=== PATIENT | female | born 1970 | race American Indian/Alaskan Native ===

== ENCOUNTER 2022-01-27 14:48 | Emergency (ER) | payer OTHER ==
[2022-01-27 21:28] LABS: Hemoglobin 12.1 gm/dl (10.1-14.3); Mean Corpuscular HGB Conc 33 % (30-34); Mean Corpuscular Volume 81 fl (79-97); Platelet Count 297 K/mm3 (140-440); Red Blood Count 4.57 M/mm3 (3.65-5.03); Red Cell Distribution Width 17.7 % (13.2-15.2)
[2022-01-27] MEDS ORDERED: LORazepam 2 MG/ML VIAL IM PRN (21:29)
[2022-01-27] MEDS ORDERED: HALOPERIDOL LACTATE 5 MG/1 ML INJ IM PRN (21:29)
--- NOTE | 2022-01-27 21:30 | Emergency Department Report ---
ED General Adult HPI - General Chief complaint: Psych Stated complaint: I am homicidal. I am suicidal. Time Seen by Provider: 01/27/22 20:46 Source: patient, EMS (The patient was evaluated in the emergency department for symptoms described in the history of present illness. He/she was evaluated in the context of the global COVID-19 pandemic, which necessitated consideration that the patient might be at risk for infection with the virus that causes COVID-19. ), RN notes reviewed Mode of arrival: Stretcher Limitations: Other (Patient is acutely psychotic) - History of Present Illness Initial comments: The patient was evaluated in the emergency department for symptoms described in the history of present illness. He/she was evaluated in the context of the global COVID-19 pandemic, which necessitated consideration that the patient might be at risk for infection with the virus that causes COVID-19. Institutional protocols and algorithms that pertain to the evaluation of patients at risk for COVID-19 are in a state of rapid change based on in formation released by regulatory bodies including the CDC and federal and state organizations. These policies and algorithms were followed during the patient's care in the emergency department. Please note that these policies, procedures and recommendations changed on a rapid basis. This is a 51-year-old female who presents to the department today and complaints to myself to being homicidal and suicidal. She recently relocated to [place] from [place]. She complains of homicidality and suicidality. She denies physical pain. She denies chest pain. She makes no complaint of wanting to pass out to myself. She has not been on her medications. She denies cough and COVID symptoms. She denies urinary symptoms. She does not describe exacerbating or relieving factors. -: Gradual Consistency: constant Associated Symptoms: denies other symptoms - Related Data Allergies Allergy/AdvReac Type Severity Reaction Status Date / Time No Known Allergies Allergy Verified 01/27/22 15:00 ED Review of Systems ROS: Stated complaint: FELT LIKE PASSING OUT Other details as noted in HPI Comment: All other systems reviewed and negative Cardiovascular: other (Lightheadedness. No head trauma). denies: syncope (Denies losing consciousness) Genitourinary: denies: dysuria Psychiatric: depression, homicidal thoughts, suicidal thoughts, other (Agitation and anxiety) ED Past Medical Hx - Past Medical History Previous Medical History?: Yes Hx Psychiatric Treatment: Yes Hx Asthma: Yes ED Physical Exam - General Limitations: Other (Patient is psychotic) General appearance: alert, anxious - Head Head exam: Present: atraumatic, normocephalic - Eye Eye exam: Present: normal appearance, EOMI. Absent: nystagmus - ENT ENT exam: Present: normal exam, normal orophraynx, mucous membranes moist, normal external ear exam - Neck Neck exam: Present: normal inspection, full ROM. Absent: tenderness, meningismus - Respiratory Respiratory exam: Present: normal lung sounds bilaterally. Absent: respiratory distress, wheezes, rales, rhonchi, stridor - Cardiovascular Cardiovascular Exam: Present: regular rate, normal rhythm, normal heart sounds. Absent: bradycardia, tachycardia, irregular rhythm, systolic murmur, diastolic murmur, rubs, gallop - GI/Abdominal GI/Abdominal exam: Present: soft. Absent: distended, tenderness, guarding, rebound, rigid, pulsatile mass - Extremities Exam Extremities exam: Present: normal inspection, full ROM, normal capillary refill, other (2+ pulses noted in the bilateral upper and lower extremities. There is no palpable cord. negative Homans sign. Muscular compartments are soft. The pelvis is stable.). Absent: pedal edema, calf tenderness - Back Exam Back exam: Present: normal inspection. Absent: tenderness, CVA tenderness (R), CVA tenderness (L), paraspinal tenderness, vertebral tenderness - Neurological Exam Neurological exam: Present: alert, normal gait, other (There is no facial droop. The tongue is midline. EOMI. 5 out of 5 strength in 4 extremities). Absent: motor sensory deficit - Psychiatric Psychiatric exam: Present: agitated, anxious, homicidal ideation, suicidal ideation - Skin Skin exam: Present: warm, dry, intact, normal color. Absent: rash ED Course Vital Signs 01/27/22 15:00 Temperature 98.6 F Pulse Rate 88 Respiratory 18 Rate Blood Pressure 124/78 [Left] O2 Sat by Pulse 99 Oximetry - Reevaluation(s) Reevaluation #1: 01/27/22 22:22 Differential diagnosis, include but not limited to: Dehydration, orthostasis, electrolyte derangement, psychosis, medical clearance for psychiatric placement Assessment and plan: 51-year-old female, with a primary complaint of homicidality and suicidality. She is not currently tachycardic, tachypneic or hypoxic. Her physical exam is benign and noncontributory. She ambulates with a steady gait. Her laboratory studies are essentially unremarkable. Urinalysis is contaminated. She denies irritative and obstructive urinary symptoms. Have ordered a psychiatric consultation, and placed this patient on a 1013. COVID swab is ordered. The emergency room will follow along as the patient provides a COVID swab. Patient currently resting comfortably on her left side, and in no acute distress. At this point in time, this patient does not appear to have an immediate medical contraindication to psychiatric admission, evaluation, consultation and placement ED Medical Decision Making - Lab Data Result diagrams: 01/27/22 21:14 01/27/22 21:14 Vital Signs 01/27/22 15:00 Temperature 98.6 F Pulse Rate 88 Respiratory 18 Rate Blood Pressure 124/78 [Left] O2 Sat by Pulse 99 Oximetry Lab Results 01/27/22 01/27/22 01/27/22 Range/Units 21:00 21:14 21:14 WBC 7.2 (4.5-11.0) K/mm3 RBC 4.57 (3.65-5.03) M/mm3 Hgb 12.1 (10.1-14.3) gm/dl Hct 37.0 (30.3-42.9) % MCV 81 (79-97) fl MCH 27 L (28-32) pg MCHC 33 (30-34) % RDW 17.7 H (13.2-15.2) % Plt Count 297 (140-440) K/mm3 Sodium (137-145) mmol/L Potassium (3.6-5.0) mmol/L Chloride (98-107) mmol/L Carbon Dioxide (22-30) mmol/L Anion Gap mmol/L BUN (7-17) mg/dL Creatinine (0.6-1.2) mg/dL Estimated GFR ml/min BUN/Creatinine Ratio % Glucose (65-100) mg/dL Calcium (8.4-10.2) mg/dL Total Bilirubin (0.1-1.2) mg/dL AST (5-40) units/L ALT (7-56) units/L Alkaline Phosphatase (35-129) units/L Total Creatine Kinase 347 H (30-135) units/L Troponin T (0.00-0.029) ng/mL Total Protein (6.3-8.2) g/dL Albumin (3.9-5) g/dL Albumin/Globulin Ratio % Urine Color (Yellow) Urine Turbidity (Clear) Urine pH (5.0-7.0) Ur Specific [place] (1.003-1.030) Urine Protein (Negative) mg/dL Urine Glucose (UA) (Negative) mg/dL Urine Ketones (Negative) mg/dL Urine Blood (Negative) Urine Nitrite (Negative) Urine Bilirubin (Negative) Urine Urobilinogen (<2.0) mg/dL Ur Leukocyte Esterase (Negative) Urine WBC (Auto) (0.0-6.0) /HPF Urine RBC (Auto) (0.0-6.0) /HPF U Epithel Cells (Auto) (0-13.0) /HPF Urine Mucus /HPF Salicylates < 0.3 L (2.8-20.0) mg/dL Urine Opiates Screen Urine Methadone Screen Acetaminophen (10.0-30.0) ug/mL Ur Barbiturates Screen Phenytoin 0.8 L (10.0-20.0) ug/mL Ur Phencyclidine Scrn U Benzodiazepines Scrn [place] 0.1 (0.0-1.2) mmol/L 01/27/22 01/27/22 01/27/22 Range/Units 21:14 21:14 21:14 WBC (4.5-11.0) K/mm3 RBC (3.65-5.03) M/mm3 Hgb (10.1-14.3) gm/dl Hct (30.3-42.9) % MCV (79-97) fl MCH (28-32) pg MCHC (30-34) % RDW (13.2-15.2) % Plt Count (140-440) K/mm3 Sodium 138 (137-145) mmol/L Potassium 3.6 (3.6-5.0) mmol/L Chloride 102.4 (98-107) mmol/L Carbon Dioxide 22 (22-30) mmol/L Anion Gap 17 mmol/L BUN 9 (7-17) mg/dL Creatinine 0.6 (0.6-1.2) mg/dL Estimated GFR > 60 ml/min BUN/Creatinine Ratio 15 % Glucose 99 (65-100) mg/dL Calcium 9.3 (8.4-10.2) mg/dL Total Bilirubin 0.90 (0.1-1.2) mg/dL AST 28 (5-40) units/L ALT 13 (7-56) units/L Alkaline Phosphatase 70 (35-129) units/L Total Creatine Kinase (30-135) units/L Troponin T < 0.010 (0.00-0.029) ng/mL Total Protein 7.0 (6.3-8.2) g/dL Albumin 4.4 (3.9-5) g/dL Albumin/Globulin Ratio 1.7 % Urine Color (Yellow) Urine Turbidity (Clear) Urine pH (5.0-7.0) Ur Specific [place] (1.003-1.030) Urine Protein (Negative) mg/dL Urine Glucose (UA) (Negative) mg/dL Urine Ketones (Negative) mg/dL Urine Blood (Negative) Urine Nitrite (Negative) Urine Bilirubin (Negative) Urine Urobilinogen (<2.0) mg/dL Ur Leukocyte Esterase (Negative) Urine WBC (Auto) (0.0-6.0) /HPF Urine RBC (Auto) (0.0-6.0) /HPF U Epithel Cells (Auto) (0-13.0) /HPF Urine Mucus /HPF Salicylates (2.8-20.0) mg/dL Urine Opiates Screen Urine Methadone Screen Acetaminophen 5.0 L (10.0-30.0) ug/mL Ur Barbiturates Screen Phenytoin (10.0-20.0) ug/mL Ur Phencyclidine Scrn U Benzodiazepines Scrn [place] (0.0-1.2) mmol/L 01/27/22 01/27/22 Range/Units Unknown Unknown WBC (4.5-11.0) K/mm3 RBC (3.65-5.03) M/mm3 Hgb (10.1-14.3) gm/dl Hct (30.3-42.9) % MCV (79-97) fl MCH (28-32) pg MCHC (30-34) % RDW (13.2-15.2) % Plt Count (140-440) K/mm3 Sodium (137-145) mmol/L Potassium (3.6-5.0) mmol/L Chloride (98-107) mmol/L Carbon Dioxide (22-30) mmol/L Anion Gap mmol/L BUN (7-17) mg/dL Creatinine (0.6-1.2) mg/dL Estimated GFR ml/min BUN/Creatinine Ratio % Glucose (65-100) mg/dL Calcium (8.4-10.2) mg/dL Total Bilirubin (0.1-1.2) mg/dL AST (5-40) units/L ALT (7-56) units/L Alkaline Phosphatase (35-129) units/L Total Creatine Kinase (30-135) units/L Troponin T (0.00-0.029) ng/mL Total Protein (6.3-8.2) g/dL Albumin (3.9-5) g/dL Albumin/Globulin Ratio % Urine Color [place] (Yellow) Urine Turbidity Slightly-cloudy (Clear) Urine pH 5.0 (5.0-7.0) Ur Specific [place] 1.025 (1.003-1.030) Urine Protein 30 mg/dl (Negative) mg/dL Urine Glucose (UA) Neg (Negative) mg/dL Urine Ketones 20 (Negative) mg/dL Urine Blood Neg (Negative) Urine Nitrite Neg (Negative) Urine Bilirubin Neg (Negative) Urine Urobilinogen 4.0 (<2.0) mg/dL Ur Leukocyte Esterase Neg (Negative) Urine WBC (Auto) 26.0 H (0.0-6.0) /HPF Urine RBC (Auto) 4.0 (0.0-6.0) /HPF U Epithel Cells (Auto) 26.0 H (0-13.0) /HPF Urine Mucus 3+ /HPF Salicylates (2.8-20.0) mg/dL Urine Opiates Screen Negative Urine Methadone Screen Negative Acetaminophen (10.0-30.0) ug/mL Ur Barbiturates Screen Negative Phenytoin (10.0-20.0) ug/mL Ur Phencyclidine Scrn Negative U Benzodiazepines Scrn Negative [place] (0.0-1.2) mmol/L - EKG Data -: EKG Interpreted by [place] EKG shows normal: sinus rhythm Rate: normal - EKG Data When compared to previous EKG there are: previous EKG unavailable 01/27/22 22:21 The EKG is interpreted at 21: 38 This is a sinus rhythm, 70 bpm. Borderline leftward axis deviation. Borderline left anterior fascicular block. QTc 504 ms. Motion artifact. Abnormal EKG. Not a STEMI. Borderline atrial enlargement. - Radiology Data Radiology results: pending, report reviewed, image reviewed CHEST 2 VIEWS INDICATION / CLINICAL INFORMATION: Medical Clearance Psych. COMPARISON: None available. FINDINGS: SUPPORT DEVICES: None. HEART / MEDIASTINUM: No significant abnormality. LUNGS / PLEURA: The lungs are mildly hyperinflated but otherwise clear. No pneumothorax. ADDITIONAL FINDINGS: No significant additional findings. IMPRESSION: 1. No acute findings. Signer Name: Madyson Dodson MD Signed: 01/27/2022 8:47 PM Workstation Name: [id number] Critical care attestation.: If time is entered above; I have spent that time in minutes in the direct care of this critically ill patient, excluding procedure time. ED Disposition Clinical Impression: Psychosis, Medical clearance for psychiatric admission Disposition: [address] [place] [address] Is pt being admited?: No Does the pt Need Aspirin: No Condition: Good
[2022-01-27 21:47] LABS: Bilirubin,Urine NEG (Negative); Blood,Urine NEG (Negative); Color,Urine Amber (Yellow)
[2022-01-27 21:50] LABS: Mucus,Urine 3+ /HPF
--- NOTE | 2022-01-27 21:51 | XRay Report ---
CHEST 2 VIEWS INDICATION / CLINICAL INFORMATION: Medical Clearance Psych. COMPARISON: None available. FINDINGS: SUPPORT DEVICES: None. HEART / MEDIASTINUM: No significant abnormality. LUNGS / PLEURA: The lungs are mildly hyperinflated but otherwise clear. No pneumothorax. ADDITIONAL FINDINGS: No significant additional findings. IMPRESSION: 1. No acute findings. Signer Name: Madyson Dodson MD Signed: 01/27/2022 9:47 PM Workstation Name: [id number]
[2022-01-27 21:56] LABS: Alanine Aminotransferase 13 units/L (7-56); Albumin 4.4 g/dL (3.9-5); Blood Urea Nitrogen 9 mg/dL (7-17); Calcium 9.3 mg/dL (8.4-10.2); Hemolysis Index 8
[2022-01-27 21:58] LABS: BUN/Creatinine Ratio 15
[2022-01-27 22:01] LABS: Benzodiazepines Screen,Urine Negative; Methadone Screen,Urine Negative; Opiate Screen,Urine Negative
[2022-01-27 22:32] LABS: Basophils % (Manual) 0 % (0.0-1.8); Total Cells Counted 100
[2022-01-27 22:38] LABS: Anisocytosis 1+; Platelet Estimate Consistent w Auto
[2022-01-27 22:48] LABS: Amphetamine Screen,Urine Positive; Cannabinoid Screen,Urine Positive; Cocaine Screen,Urine Positive
--- NOTE | 2022-01-28 09:12 | Consultation ---
History of Present Illness - Reason for Consult Consult date: 01/28/22 Reason for consult: SI - History of Present Psychiatric Illness HPI: This is a 51-year-old female who presents to the department today and complaints to myself to being homicidal and suicidal. She recently relocated to [place] from [place]. She complains of homicidality and suicidality. She denies physical pain. She denies chest pain. She makes no complaint of wanting to pass out to myself. She has not been on her medications. She denies cough and COVID symptoms. She denies urinary symptoms. She does not describe exacerbating or relieving factors. The patient was seen today. She is irritable, and appears anxious. She is rocking back and forth. The patient says she is hearing things. She would not tell me what she was hearing, she says "stuff. I'm having psychosis." She also states she is suicidal and homicidal. The patient says she's been off her meds for about two months. She says depakote and hydroxizine is what she takes. She says she has a history of schizophrenia and bipolar. The patient endorses cocaine, alcohol and THC. She is also positive for methamphetamines. She says she drinks a 6 pack of beer daily PAST PSYCHIATRIC HISTORY: Diagnoses: Bipolar, schizophrenia Suicide attempts or Self-harm behavior: Denies Prior psychiatric hospitalizations: Yes Substance Abuse history: meth, crack, THC, alcohol Previous psychiatric medications tried: depakote, hydroxizine Outpatient treatment: Unknown PAST MEDICAL HISTORY: None reported Family Psychiatric History: None reported or documented SOCIAL HISTORY Marital Status: Single Living Arrangements: "visiting" Employment Status: Disabled Access to guns/weapons: Denies Education: 12th grade History of Abuse:Denies Legal History: Denies REVIEW OF SYSTEMS Constitutional: Negative for weight loss ENT: Negative for stridor Respiratory: Negative for cough or hemoptysis All other systems reviewed and are negative MENTAL STATUS EXAMINATION General Appearance and Behavior: Age appropriate, wearing appropriate clothes, cooperative, polite with questioning, fair eye contact, rocking back and forth Cooperation: cooperative Psychomotor Behavior: Psychomotor normal Mood: depressed Affect and affective range: congruent with states mood Thought Process: Goal oriented Thought Content: SI//HI, hallucinations Speech: Normal volume, Regular rate and rhythm Suicidal Ideation: Yes Homicidal Ideation: Yes Hallucination: Auditory Delusions: None elicted Impulse Control: Limited Insight and Judgment: Limited Memory: Intact Attention:attentive Orientation: Alert and oriented Diagnoses: Schizophrenia Polysubstance Use Treatment Plan 1013 Olanzapine 5mg po daily Depakote DR 125mg po BID Vistaril 25mg po q6h prn anxiety Agree with [facility] Medical: Per primary Sitter: Defer to primary Disposition: Recommend acute psychiatric inpatient treatment Will follow. Thanks Case staffed with Dr. Nelson Medications and Allergies Allergies Allergy/AdvReac Type Severity Reaction Status Date / Time No Known Allergies Allergy Verified 01/27/22 15:00 Active Meds: Active Medications Haloperidol Lactate (Haloperidol Lactate 5 Mg/1 Ml Inj) 5 mg IM Q6HR PRN PRN Reason: Agitation Lorazepam (Lorazepam 2 Mg/Ml Vial) 2 mg IM Q4HR PRN PRN Reason: Agitation Mental Status Exam - Vital signs Last Vital Signs Temp 98.5 F 01/28/22 03:19 Pulse 68 01/28/22 03:19 Resp 16 01/28/22 03:19 BP 90/60 01/28/22 03:19 Pulse Ox 98 01/28/22 03:19 Results Result Diagrams: 01/27/22 21:14 01/27/22 21:14 Abnormal lab results 01/27/22 01/27/22 01/27/22 Range/Units 21:00 21:14 21:14 MCH 27 L (28-32) pg RDW 17.7 H (13.2-15.2) % Lymphocytes % (Manual) 38.0 H (13.4-35.0) % Total Creatine Kinase 347 H (30-135) units/L Urine WBC (Auto) (0.0-6.0) /HPF U Epithel Cells (Auto) (0-13.0) /HPF Salicylates < 0.3 L (2.8-20.0) mg/dL Acetaminophen (10.0-30.0) ug/mL Phenytoin 0.8 L (10.0-20.0) ug/mL 01/27/22 01/27/22 Range/Units 21:14 Unknown MCH (28-32) pg RDW (13.2-15.2) % Lymphocytes % (Manual) (13.4-35.0) % Total Creatine Kinase (30-135) units/L Urine WBC (Auto) 26.0 H (0.0-6.0) /HPF U Epithel Cells (Auto) 26.0 H (0-13.0) /HPF Salicylates (2.8-20.0) mg/dL Acetaminophen 5.0 L (10.0-30.0) ug/mL Phenytoin (10.0-20.0) ug/mL All other labs normal.
[2022-01-28] MEDS ORDERED: hydrOXYzine PAMOATE 25 MG CAP PO PRN (09:30)
[2022-01-28 09:58] VITALS: BP 100/62
[2022-01-28] MEDS ORDERED: DIVALPROEX DR 125 MG TAB PO SCH (10:00)
--- NOTE | 2022-01-28 11:16 | Electrocardiograph Report ---
[facility] Test Date: 2022-01-27 Test Time: 21:38:17 Pat Name: CHUY MONTES Department: Room: Gender: F Senior C Web Developer: LIUDMILA : 1970 Requested By: ARLEY TRACY Order Number: [id number] Reading MD: Leonardo Caballero Measurements Intervals [place] Rate: 70 P: 83 KS: 149 QRS: 5 QRSD: 78 T: 19 QT: 466 QTc: 504 Interpretive Statements Sinus rhythm Biatrial enlargement No previous ECG available for comparison Electronically Signed On 01-28-2022 11:15:35 EDT by Leonardo Caballero
== END 2022-01-28 19:43 ==
LOC: ED 14:48
DX: F29 Unspecified psychosis not due to a substance or known physiological condition (principal); Z13.30 Encounter for screening examination for mental health and behavioral disorders, unspecified; Z20.822 Contact with and (suspected) exposure to COVID-19; J45.909 Unspecified asthma, uncomplicated
CPT/HCPCS: 36415; 71046; 80053; 80178; 80185; 80307; 81001; 82550; 84443; 84484; 85007; 85025; 87086; 93005; 99285; U0003; 80320; G0480